=== PATIENT | female | born 1990 | race African-American/Black ===

== ENCOUNTER 2017-03-05 17:52 | Emergency (ER) | payer SELFPAY ==
[2017-03-05 17:58] VITALS: BMI 20.5
[2017-03-05] MEDS: ALBUTEROL SO4 2.5/IPRATROPIUM 0.5 INH SOL 3 ML VIAL.NEB. NEB SCH ×4 (18:00→19:00)
[2017-03-05] MEDS ORDERED: predniSONE 20 MG TABLET (UD) PO ONE (18:07)
[2017-03-05] MEDS ORDERED: predniSONE 20 MG TABLET (UD) ONE (18:11)
--- NOTE | 2017-03-05 18:11 | PDOC ---
History of Present Illness - General Chief Complaint: Asthma Stated Complaint: ASTHMA Time Seen by Provider: 03/05/17 18:06 History Source: Patient - History of Present Illness Timing/Duration: other (today) Associated Symptoms: reports: shortness of breath. denies: cough, fever/chills Past History - Past Medical History Allergies/Adverse Reactions: Allergies Allergy/AdvReac Type Severity Reaction Status Date / Time No Known Allergies Allergy Verified 03/05/17 18:09 Home Medications: Ambulatory Orders Prednisone [Deltasone -] 20 mg PO DAILY #42 tablet 03/05/17 Asthma: Yes - Immunization History Immunization Up to Date: No - Suicide/Smoking/Psychosocial Hx Smoking History: Never smoked Have you smoked in the past 12 months: No Information on smoking cessation initiated: No Hx Alcohol Use: No Drug/Substance Use Hx: No Substance Use Type: None Review of Systems - Review of Systems Constitutional: No: Chills, Fever Respiratory: Yes: Shortness of Breath, Wheezing. No: Cough Cardiac (ROS): Yes: Chest Tightness *Physical Exam - Vital Signs Last Vital Signs Temp Pulse Resp BP Pulse Ox 98.7 F 87 22 133/85 100 03/05/17 17:55 03/05/17 17:55 03/05/17 17:55 03/05/17 17:55 03/05/17 17:55 - Physical Exam General Appearance: Yes: Appropriately Dressed, Moderate Distress HEENT: positive: Normal Voice Neck: positive: Supple Respiratory/Chest: positive: Wheezing Cardiovascular: positive: Regular Rate, S1, S2 Integumentary: positive: Dry, Warm Neurologic: positive: Fully Oriented, Alert, Normal Mood/Affect Medical Decision Making - Medical Decision Making 03/05/17 18:07 26-year-old female, history of asthma with multiple admissions, status post intubation once in childhood, uses multiple pumps, nebulizer and takes 60 mg of prednisone daily, follows up in [place] where she resides, with shortness of breath and wheezing, similar to her asthma. Denies cough, fever or chills. Reports that she ran out of her prednisone last week See exam Asthma exacerbation Vitals stable but unable to speak in full sentences with audible wheezing -nebs -pred -reassess 03/05/17 18:09 03/05/17 18:33 03/05/17 18:39 Pt significantly improved after multiple nebs in ED, no wheezing on reassessment and able to ambulate without shortness of breath. Stable for discharge at this time to resume her 60 mg of prednisone daily and follow-up with her primary care physician *DC/Admit/Observation/Transfer Diagnosis at time of Disposition: Asthma exacerbation - Discharge Dispostion Disposition: HOME Condition at time of disposition: Improved - Prescriptions Prescriptions: Prednisone [Deltasone -] 20 mg PO DAILY #42 tablet - Patient Instructions Printed Discharge Instructions: Asthma -- Adult Additional Instructions: Continue to take your home medications and follow-up with your PMD
[2017-03-05 19:02] VITALS: BP 122/84; PULSE 86; TEMP 98
== END 2017-03-05 18:59 | disposition home or self-care (01) ==
LOC: JER 17:52
PROC: 3E0F7GC Introduction of Other Therapeutic Substance into Respiratory Tract, Via Natural or Artificial Opening (ICD-10-PCS; principal; 2017-03-05)
DX: J45.901 Unspecified asthma with (acute) exacerbation (principal)
CPT/HCPCS: 99281-25